=== PATIENT | male | born 1990 | race Caucasian/White ===

== ENCOUNTER 2022-11-17 09:05 | Emergency (ER) | payer MEDICAID, SELFPAY ==
[2022-11-17 09:07] VITALS: BP 128/84; PULSE 64; RESP 14; TEMP 36.3; O2SAT 98; BMI 33.8
--- NOTE | 2022-11-17 09:25 | EX.ED.VIS.UR ---
HPI HPI - URI History of Present Illness Chief Complaint: Cough Informant: patient Onset/Context/Timing Onset: Days (3) Context: Gradual Onset Timing: Intermittent Worsened by: - (Nothing) Relieved by: - (Nothing) Associated Symptoms Associated Symptoms: Positive for Headache, Sinus Pressure, Chest Pain and Hemoptysis; Negative for Nasal Congestion, Myalgias, Nausea, Vomiting, Diarrhea or Shortness of Breath Narrative Narrative: Patient presents with a cough that has been getting progressively worse over the past 3 days. Patient states it is gradually gotten worse. Patient states that he started coughing up some blood occasionally. Patient states it initially started out as blood-streaked sputum. Patient states today it was much worse. Patient states nothing makes it better nothing makes it worse. Patient admits to some subjective chills. Patient admits to some sinus pressure and headache. Patient states he was having some pain in his chest yesterday but denies any pain today. ROS ROS ED Constitutional Constitutional ED: Reports chills and subjective; Denies fever(s) Eyes Eyes: Denies blurry vision or change in vision ENT ENT ED: Denies rhinorrhea or sore throat Cardiovascular Cardiovascular: Reports chest pain; Denies palpitations Respiratory/Chest Respiratory/Chest: Denies cough or dyspnea Gastrointestinal Gastrointestinal: Denies nausea or vomiting Genitourinary Genitourinary ED: Denies dysuria or hematuria Musculoskeletal Musculoskeletal: Denies back pain or neck pain Integumentary Denies abscess or rash Neurologic Neurologic: Reports headache(s); Denies weakness Allergic/Immunologic Allergic/Immunologic ED: Denies mouth swelling or urticaria PFSH PFSH Medical History no medical history no medical history Allergy/AdvReac Type Severity Reaction Status Date / Time amoxicillin Allergy Unknown UNKNOWN Verified 11/17/22 09:06 Family History no significant family his Surgical History no surgical history no surgical history Social History (Updated 11/17/22 @ 09:[address] Davi Grace, DO) Smoking Status: Current every day smoker tobacco type: cigarettes EXAM Physical Exam Const Vital Signs: 11/17/22 09:07 11/17/22 09:48 11/17/22 12:00 Temperature 97.4 F L Temperature Source Temporal Pulse Rate 64 53 L Respiratory Rate 14 15 Respiratory Effort Short of Breath Blood Pressure 128/84 H 126/71 H Blood Pressure Mean 98 89 Pulse Ox 98 98 Oxygen Delivery Method Room Air Room Air Positive well nourished and well developed General Appearance ED: well developed HEENT Reports moist mucous membranes Neck supple and no JVD Resp normal respiratory effort and clear to auscultation bilaterally Cardio regular rate, regular rhythm and no murmurs GI normal to inspection, nondistended, normoactive bowel sounds and non-tender Palpation: soft Extremity normal to inspection General Extremety ED: Negative for edema or tenderness General Extremity: Negative for edema Neuro oriented x3, CN's II-XII intact bilaterally and no sensory deficits noted Sensorium / Orientation: alert Motor Exam: strength 5/5 throughout Psych mental status grossly normal Skin no rashes or lesions noted MDM MDM MDM Narrative Medical decision making narrative: Differential diagnosis includes bronchitis, pneumonia, pulmonary embolism, cardiac dysrhythmia, cardiac ischemia, lung cancer, and coagulopathy. CBC will be obtained to assess for anemia and leukocytosis. Basic metabolic profile will be obtained to assess for electrolyte abnormality and renal function. CTA of the chest will be obtained to assess for pulmonary embolism and lung cancer. PT with INR and PTT will be obtained to assess for coagulopathy. EKG will be obtained to assess for cardiac dysrhythmia and cardiac ischemia. High-sensitivity troponin will be obtained to assess for cardiac ischemia. Lab Data Attestation: I reviewed the patient's lab results. Lab results narrative: CBC was reviewed and was within normal limits. Basic metabolic profile was reviewed and was within normal limits. High-sensitivity troponin was reviewed and was normal at 4. PT was INR and PTT were reviewed and were within normal limits. Labs: Laboratory Results - last 24 hr 11/17/22 11/17/22 09:40 11:40 WBC 8.4 RBC 5.42 Hgb 16.0 Hct 47.1 MCV 86.9 MCH 29.5 MCHC 34.0 RDW Std Deviation 39.8 RDW Coeff of Erika 12.6 Plt Count 241 MPV 9.4 Immature Gran % (Auto) 0.800 Neut % (Auto) 53.9 Lymph % (Auto) 32.7 Scott % (Auto) 7.2 Eos % (Auto) 3.7 Baso % (Auto) 1.7 H Absolute Neuts (auto) 4.6 Absolute Lymphs (auto) 2.76 Nucleated RBC % 0 PT 12.9 INR 1.0 APTT 32.5 Sodium 139 Potassium 4.1 Chloride 111 H Carbon Dioxide 27.0 Anion Gap 1 L BUN 17 Creatinine 0.99 Estim Creat Clear Calc 129.08 Est GFR (MDRD) Af Amer 111 Est GFR (MDRD) Non-Af 92 BUN/Creatinine Ratio 17.2 Glucose 91 Calcium 8.7 Troponin I High Sens 4 Radiography CTA PE Study: No Evidence of PE and No Evidence of Dissection Diagnostic Testing: Clinical Impression(s) from Imaging Studies Chest CTA 11/17/22 09:30 IMPRESSION: Normal CTA chest examination, without a demonstrated pulmonary embolism or arterial dissection. Fatty infiltration of the liver. Electronically Signed: Seven Eldridge MD at 10:34 EDT , CTA of the chest was obtained. There is no pulmonary embolism or aortic dissection. There is no mass noted. This was interpreted by the radiologist and was also dependently reviewed by myself. EKG Initial EKG: Attestation: I personally reviewed and interpreted this EKG as follows: Interpretation: No Acute Injury Pattern and Sinus Bradycardia (58) Comments: EKG was obtained. On my independent interpretation, it showed a sinus bradycardia with a rate of 58. DE interval, QRS interval, and QTc intervals were all normal. [place] was normal. There are no acute ST or T wave changes. Prior EKG tracings: not available for review Prior: No Prior Treatment and Re-Evaluation Narrative: Smoking cessation was discussed. Patient was advised of his findings. Patient is feeling better on reevaluation. Patient was instructed to follow-up with his primary care physician in 5 to 7 days. Patient and spouse understood and were agreeable with the plan. All questions were answered. Discharge Plan Triage Chief Complaint: Cough ED Provider: Davi Grace Dx/Rx/DC Orders Primary Care Provider: Mandy Physician,Saba Primary
--- NOTE | 2022-11-17 09:30 | CT_ITS ---
STUDY: CTA CHEST REASON FOR EXAM: Male, 32 years old. Hemoptysis RADIATION DOSAGE (If Supplied By Facility): CTDIvol = ( 17.41 ) mGy, DLP = ( 583.78 ) mGycm TECHNIQUE: The examination was performed with the intravenous administration of IV 100mL Isovue-370. Post-processing of the angiographic images was performed, with multiplanar reformation and 3D reconstruction. Individualized dose optimization techniques were used for this CT. COMPARISON: None. FINDINGS: Small benign-appearing bilateral axillary lymph nodes. Normal enhancement of the main pulmonary artery and right and left pulmonary arteries. Normal enhancement of the bilateral peripheral pulmonary arteries. There is no demonstrated pulmonary embolism. Normal thoracic aorta and visualized great vessels. There is no demonstrated aortic dissection. Normal heart and pericardium. Normal mediastinum. Normal hilar regions. Normal visualized trachea and bronchi. The lungs are well expanded. Normal pulmonary parenchyma. Normal pleura. Normal chest wall structures. Normal osseous structures. Fatty infiltration of the liver. CT/CTA Chest W/WO Contrast IMPRESSION: Normal CTA chest examination, without a demonstrated pulmonary embolism or arterial dissection. Fatty infiltration of the liver. Electronically Signed: Seven Eldridge MD at 10:34 EDT ,
--- NOTE | 2022-11-17 09:31 | EKG12_ITS ---
Test Reason : COUGH Blood Pressure : / mmHG Vent. Rate : 058 BPM Atrial Rate : 058 BPM P-R Int : 148 ms QRS Dur : 100 ms QT Int : 396 ms P-R-T Axes : 003 006 019 degrees QTc Int : 388 ms Sinus bradycardia Otherwise normal ECG Confirmed by JOSE FRANCISCO SILVESTRE, BRITNEY ([id number]), subeditor KVNG LINARES ([id number]) on 11/23/2022 2:14:21 PM Referred By: Confirmed By:BRITNEY FELTON MD
--- NOTE | 2022-11-17 09:34 | NURSING ---
NO OLD EKGS
[2022-11-17 09:47] LABS: Absolute Lymphocyte Count 2.76 X10^3/uL (0.83-4.51); Absolute Neutrophil Count 4.6 X10^3/uL (2.0-7.7); Basophil# 0.14 X10^3/uL; Basophil% 1.7 % (0-1); Eosinophil# 0.31 X10^3/uL; Eosinophils% 3.7 % (0-5); Hematocrit 47.1 % (40-54); Lymphocyte # 2.76 X10^3/ul (0.83-4.51); Lymphocyte % 32.7 % (19-41); Mean Corpuscular Hgb 29.5 pg (27.0-32.0); Mean Corpuscular Volume 86.9 fL (80-94); Mean Platelet Vol. 9.4 fl (6.2-12.0); Monocyte# 0.61 X10^3/uL; Monocyte% 7.2 % (0-10); NRBC Flagged by Analyzer 0 % (0-5); Neutrophil # 4.55 X10^3/uL (2.7-7.7); Neutrophil % 53.9 % (47-70); Platelet Count 241 K/mm3 (150-450); RBC Distribution Width CV 12.6 % (11.6-14.6); RBC Distribution Width SD 39.8 fl (35.1-43.9); Red Blood Count 5.42 M/mm3 (4.6-6.2); White Blood Count 8.4 K/mm3 (4.4-11.0)
[2022-11-17 10:06] LABS: Anion Gap 1 (5-15); BUN 17 mg/dL (7-18); BUN/Creat Ratio 17.2 RATIO (10-20); Calcium,Total 8.7 mg/dL (8.5-10.1); Chloride 111 mmol/L (98-107); Creatinine, Serum 0.99 mg/dL (0.70-1.30); EST Glomerular Filtration Rate 92 mL/min (>60); Est Glom Filt Rate - Afr Amer 111 mL/min (>60); Estimated Creatinine Clearance 129.08 ml/min; Glucose 91 mg/dL (74-106); Potassium 4.1 mmol/L (3.5-5.1); Sodium Level 139 mmol/L (136-145); Troponin-I HS 4 pg/mL (3.0-78.0)
[2022-11-17 11:56] LABS: Prothrombin Time (Protime)PT. 12.9 SECONDS (11.7-14.9)
[2022-11-17 11:57] LABS: Partial Thromboplast Time 32.5 Seconds (24.1-36.2)
[2022-11-17 12:00] VITALS: BP 126/71; PULSE 53; RESP 15; O2SAT 98
== END 2022-11-17 13:03 | disposition home or self-care (01) ==
PROVIDERS: Emergency Provider Emergency Medicine; Visit Provider Emergency Medicine
DX: J20.9 Acute bronchitis, unspecified (principal); F17.210 Nicotine dependence, cigarettes, uncomplicated
CPT/HCPCS: 71275; 80048; 84484; 85025; 85610; 85730; 93005; 99283; J7030; Q9967; A4216